=== PATIENT | female | born 1975 | race Caucasian/White ===

== ENCOUNTER 2018-06-04 13:08 | Emergency (ER) | payer MEDICAID ==
[~2018-06-04] VITALS: Ht 162.6 cm; Wt 70.3 kg
[~2018-06-04 13:08] MED LIST: COLACE100 MG PO; NORCO1 TA2 PO
[2018-06-04 13:24] VITALS: Ht 162.6 cm; Wt 70.3 kg
[2018-06-04 14:57] VITALS: BP 121/77
== END 2018-06-04 14:57 | disposition home or self-care (01) ==
LOC: ED 13:08
DX: M79.10 Myalgia, unspecified site (principal); Z90.89 Acquired absence of other organs
CPT/HCPCS: J1885

== ENCOUNTER 2019-02-04 19:50 | Emergency (ER) | payer MEDICAID ==
[~2019-02-04] VITALS: Ht 152.4 cm; Wt 70.8 kg
[2019-02-04 20:14] VITALS: Ht 152.4 cm; Wt 70.8 kg
[2019-02-04 22:50] VITALS: BP 145/89
== END 2019-02-04 22:50 | disposition home or self-care (01) ==
LOC: ED 19:50
DX: T78.40XA Allergy, unspecified, initial encounter (principal); X58.XXXA Exposure to other specified factors, initial encounter
CPT/HCPCS: J1200; J7512